=== PATIENT | female | born 1995 | race Caucasian/White ===

== ENCOUNTER → 2019-02-20 15:33 | Outpatient (CLI) | payer SELFPAY | PROVIDERS: Visit Provider Obstetrics & Gynecology | DX: N92.6 Irregular menstruation, unspecified (principal) ==

== ENCOUNTER → 2019-12-20 09:53 | Outpatient (CLI) | payer OTHER, SELFPAY ==
[2019-12-20 12:25] LABS: Progesterone Level 1.87 ng/mL (See Comment)
== END ==
PROVIDERS: Visit Provider Obstetrics & Gynecology
DX: N92.6 Irregular menstruation, unspecified (principal)
CPT/HCPCS: 84144

== ENCOUNTER → 2020-01-27 09:16 | Outpatient (CLI) | payer OTHER, SELFPAY ==
[2020-01-27 11:09] LABS: Progesterone Level 1.62 ng/mL (See Comment)
== END ==
PROVIDERS: Visit Provider Obstetrics & Gynecology
DX: N92.5 Other specified irregular menstruation (principal)
CPT/HCPCS: 36415; 84144

== ENCOUNTER → 2020-02-28 09:27 | Outpatient (CLI) | payer OTHER, SELFPAY ==
[2020-02-28 11:15] LABS: Progesterone Level 2.14 ng/mL (See Comment)
== END ==
PROVIDERS: Visit Provider Obstetrics & Gynecology
DX: N97.0 Female infertility associated with anovulation (principal); N92.6 Irregular menstruation, unspecified
CPT/HCPCS: 36415; 84144

== ENCOUNTER → 2020-03-31 09:42 | Outpatient (CLI) | payer OTHER, SELFPAY ==
[2020-03-31 10:51] LABS: Progesterone Level 29.27 ng/mL (See Comment)
== END ==
PROVIDERS: Visit Provider Obstetrics & Gynecology
DX: N97.0 Female infertility associated with anovulation (principal); N92.6 Irregular menstruation, unspecified
CPT/HCPCS: 36415; 84144

== ENCOUNTER → 2020-04-27 09:33 | Outpatient (CLI) | payer OTHER, SELFPAY ==
[2020-04-27 11:13] LABS: Progesterone Level 23.92 ng/mL (See Comment)
== END ==
PROVIDERS: Visit Provider Obstetrics & Gynecology
DX: N97.0 Female infertility associated with anovulation (principal); N92.6 Irregular menstruation, unspecified
CPT/HCPCS: 36415; 84144

== ENCOUNTER → 2020-05-26 13:04 | Outpatient (CLI) | payer OTHER, SELFPAY ==
[2020-05-26 16:09] LABS: Progesterone Level 28.56 ng/mL (See Comment)
== END ==
PROVIDERS: Visit Provider Obstetrics & Gynecology
DX: N97.0 Female infertility associated with anovulation (principal); N92.6 Irregular menstruation, unspecified
CPT/HCPCS: 36415; 84144

== ENCOUNTER → 2020-06-23 09:26 | Outpatient (CLI) | payer OTHER, SELFPAY ==
[2020-06-23 11:02] LABS: Progesterone Level 19.01 ng/mL (See Comment)
== END ==
PROVIDERS: Visit Provider Obstetrics & Gynecology
DX: N97.0 Female infertility associated with anovulation (principal); N92.6 Irregular menstruation, unspecified
CPT/HCPCS: 36415; 84144

== ENCOUNTER → 2020-07-06 09:50 | Outpatient (CLI) | payer OTHER, SELFPAY ==
[2020-07-06 12:43] LABS: hCG Titer Quant., Serum 748 mIU/mL (1-3)
== END ==
PROVIDERS: Visit Provider Obstetrics & Gynecology
DX: N91.2 Amenorrhea, unspecified (principal)
CPT/HCPCS: 36415; 84702; 86850; 86900; 86901

== ENCOUNTER → 2020-07-08 09:23 | Outpatient (CLI) | payer OTHER, SELFPAY ==
[2020-07-08 11:02] LABS: hCG Titer Quant., Serum 1685 mIU/mL (1-3)
== END ==
PROVIDERS: Visit Provider Obstetrics & Gynecology
DX: N91.2 Amenorrhea, unspecified (principal)
CPT/HCPCS: 36415; 84702

== ENCOUNTER → 2020-07-10 09:41 | Outpatient (CLI) | payer OTHER, SELFPAY ==
[2020-07-10 11:37] LABS: hCG Titer Quant., Serum 3598 mIU/mL (1-3)
== END ==
PROVIDERS: Visit Provider Obstetrics & Gynecology
DX: N91.2 Amenorrhea, unspecified (principal)
CPT/HCPCS: 36415; 84702

== ENCOUNTER → 2020-07-22 12:14 | Outpatient (CLI) | payer OTHER, SELFPAY ==
[2020-07-22 13:17] LABS: Absolute Lymphocyte Count 1.91 X10^3/uL (0.83-4.51); Absolute Neutrophil Count 10.3 X10^3/uL (2.0-7.7); Basophil# 0.03 X10^3/uL; Basophil% 0.2 % (0-1); Eosinophil# 0.01 X10^3/uL; Eosinophils% 0.1 % (0-5); Hematocrit 42.4 % (37-47); Hemoglobin 14.3 g/dL (12.0-15.0); Lymphocyte # 1.91 X10^3/ul (0.83-4.51); Lymphocyte % 14.6 % (19-41); Mean Corp Hgb Conc 33.7 g/dL (32-36); Mean Corpuscular Hgb 29.3 pg (27.0-32.0); Mean Corpuscular Volume 86.9 fL (81-99); Mean Platelet Vol. 10.3 fl (6.2-12.0); Monocyte# 0.72 X10^3/uL; Monocyte% 5.5 % (0-10); NRBC Flagged by Analyzer 0 % (0-5); Neutrophil # 10.34 X10^3/uL (2.7-7.7); Neutrophil % 79.1 % (47-70); Platelet Count 263 K/mm3 (150-450); RBC Distribution Width CV 12.2 % (11.6-14.6); Red Blood Count 4.88 M/mm3 (4.2-5.4); White Blood Count 13.1 K/mm3 (4.4-11.0)
[2020-07-22 13:18] LABS: Color, Urine Yellow (Yellow); Glucose, Dipstick Normal (Normal); Ketone-Dipstick Negative (Negative); Leukocyte Esterase-Dipstick Negative /ul (Negative); Nitrite-Dipstick Negative (Negative); Occult Blood-Urine 50 /ul (Negative); Protein-Dipstick Negative (Negative); Specific Gravity, Urine 1.015 (1.002-1.030); Urine Bilirubin Dipstick Negative (Negative); Urine Clarity Sl. Cloudy (Clear); Urine Urobilinogen Normal (Normal)
[2020-07-22 13:36] LABS: Thyroid Stim Hormone (TSH) 0.76 uIU/mL (0.358-3.74)
[2020-07-22 14:12] LABS: HIV - WCH Non-Reactive (Nonreactive); Hepatitis B Surface Antigen Non-Reactive (Nonreactive); Hepatitis C Antibody Non-Reactive (Nonreactive); Rubella IgG Reactive (Nonreactive); Syphilis Antibodies Non-reactive
[2020-07-24 04:10] LABS: Chlamydia By Nucleic Acid AMP Negative (Negative)
[2020-07-24 12:26] LABS: Gonococcus By Nucleic Acid AMP Negative (Negative)
== END ==
PROVIDERS: Visit Provider Obstetrics & Gynecology
DX: Z32.01 Encounter for pregnancy test, result positive (principal)
CPT/HCPCS: 36415; 81002; 84443; 85025; 86703; 86762; 86780; 86803; 87340; 87491; 87591

== ENCOUNTER → 2020-12-03 13:11 | Outpatient (CLI) | payer OTHER, SELFPAY ==
[2020-12-03 13:58] LABS: Hemoglobin 13.4 g/dL (12.0-15.0); Mean Corp Hgb Conc 34.4 g/dL (32-36); Mean Corpuscular Hgb 30.5 pg (27.0-32.0); Mean Corpuscular Volume 88.6 fL (81-99); Mean Platelet Vol. 10.3 fl (6.2-12.0); Platelet Count 228 K/mm3 (150-450); RBC Distribution Width CV 12.7 % (11.6-14.6); RBC Distribution Width SD 41.7 fl (35.1-43.9); White Blood Count 10.4 K/mm3 (4.4-11.0)
[2020-12-03 14:06] LABS: Glucose Challenge Gest 1H 50g 79 mg/dL (70-140)
== END ==
PROVIDERS: Visit Provider Obstetrics & Gynecology
DX: Z34.83 Encounter for supervision of other normal pregnancy, third trimester (principal)
CPT/HCPCS: 82950; 85027

== ENCOUNTER → 2021-02-10 10:50 | Outpatient (CLI) | payer OTHER, SELFPAY | PROVIDERS: Visit Provider Obstetrics & Gynecology | DX: Z36.85 Encounter for antenatal screening for Streptococcus B (principal) | CPT/HCPCS: 87081 ==

== ENCOUNTER 2021-03-11 14:03 | Inpatient (IN) | payer OTHER, SELFPAY ==
[2021-03-11] VITALS (32 sets, daily range): BP systolic 97–133; BP diastolic 56–78; PULSE 66–120; TEMP 36.4–36.8; O2SAT 82–100; BMI 29.1
[2021-03-11 13:50] LABS: ROM Internal Control Test YES-OK TO RESULT pt. (Internal QC)
[2021-03-11 13:58] LABS: ROM Patient Test POSITIVE (Negative)
[2021-03-11] MEDS: Lactated Ringers 1,000 ML 50 ML IV (14:30)
[2021-03-11 14:48] LABS: Absolute Lymphocyte Count 1.73 X10^3/uL (0.83-4.51); Absolute Neutrophil Count 10.6 X10^3/uL (2.0-7.7); Basophil# 0.03 X10^3/uL; Basophil% 0.2 % (0-1); Eosinophil# 0.01 X10^3/uL; Eosinophils% 0.1 % (0-5); Hematocrit 39.9 % (37-47); Hemoglobin 14.2 g/dL (12.0-15.0); Lymphocyte # 1.73 X10^3/ul (0.83-4.51); Lymphocyte % 13.1 % (19-41); Mean Corp Hgb Conc 35.6 g/dL (32-36); Mean Corpuscular Hgb 30.1 pg (27.0-32.0); Mean Corpuscular Volume 84.7 fL (81-99); Mean Platelet Vol. 9.8 fl (6.2-12.0); Monocyte# 0.77 X10^3/uL; Monocyte% 5.8 % (0-10); NRBC Flagged by Analyzer 0 % (0-5); Neutrophil # 10.58 X10^3/uL (2.7-7.7); Neutrophil % 80.4 % (47-70); Platelet Count 226 K/mm3 (150-450); RBC Distribution Width CV 12.6 % (11.6-14.6); RBC Distribution Width SD 38.9 fl (35.1-43.9); Red Blood Count 4.71 M/mm3 (4.2-5.4); White Blood Count 13.2 K/mm3 (4.4-11.0)
[2021-03-11] MEDS: Oxytocin 30 units/NS 500 ml 30 UNITS/500 ML IV.SOLN IV (15:51)
--- NOTE | 2021-03-11 16:33 | PCM.HP.BLA ---
History and Physical Date of Admission: 03/11/21 Chief complaint: Leakage of fluid History of present illness: 25-year-old G1, P0 at 40 weeks and 2 days with LONI: 03/09/2021 by LMP arrives with leakage of clear fluid. Denies headache, visual changes, chest pain, shortness breath, nausea vomiting, right upper quadrant pain. Patient states good movement. is complicated by two-vessel cord Static history: G1: Current Past medical history: None Medications: vitamin Past surgical history: None Allergies: No known drug allergies Social history: Denies smoking, alcohol use, drug use Family history: Denies history DVT or PE Review of systems: Besides above pertinent positives a full review of systems was performed and found to be negative Physical exam: Vital signs: Blood pressure 109/67 pulse 87 temp 97.5 Fahrenheit SPO2 90% on room air General: Normal-appearing no acute distress HEENT: Normocephalic atraumatic no cervical of adenopathy Cardiac/respiratory: No use of accessory muscles, nonlabored breathing Abdomen: Soft, nontender, gravid Extremities: No peripheral edema normal peripheral pulses Psych: Normal affect normal demeanor nonpressured speech Labs: White blood cell count 13.2 hemoglobin 14.2 hematocrit 39.9% platelets 226. Blood type pending. ROM positive Assessment plan: 25-year-old G1, P0 at 40 weeks and 2 days with spontaneous rupture membranes Admit labor and delivery CEFM GBS negative Routine orders Anesthesia to see
[2021-03-11] MEDS: Lactated Ringers 500 ML 999 ML IV ×2 (18:47→20:55)
[2021-03-11] MEDS: Ondansetron 4 MG/2 ML Vial IV (21:28)
[2021-03-11] MEDS: fentaNYL-bupivacaine (epidural) 100 ML BAG EPIDURAL (21:51)
[2021-03-11] MEDS: Lactated Ringers 1,000 ML 250 ML IV (23:02)
[2021-03-12] VITALS (21 sets, daily range): BP systolic 102–115; BP diastolic 47–88; PULSE 70–103; RESP 12–18; TEMP 36.2–37.1; O2SAT 95–99
[2021-03-12] MEDS: Lactated Ringers 1,000 ML 200 ML IV (02:35)
--- NOTE | 2021-03-12 02:36 | PN.OBGYN_ITS ---
Subjective Subjective Comfortable in bed with epidural Objective Data Objective Data Vital Signs: Vital Signs Temp Pulse Resp BP Pulse Ox 97.7 F L 76 16 112/57 L 99 03/12/21 02:02 03/12/21 02:02 03/12/21 02:02 03/12/21 02:02 03/12/21 01:38 Oxygen Delivery Method Room Air Weight: 208 lb 15.971 oz Body Mass Index (BMI) 29.1 Intake & Output: Intake and Output for Last 24 Hours 03/10/21 03/11/21 03/12/21 23:59 23:59 23:59 Intake Total 1892.20 / 1892.20 779.17 / 779.17 Output Total 2100 / 2099 Balance -207.80 / -207.80 779.17 / 779.17 Lab / Micro Data Result Diagrams: 03/11/21 14:30 Labs: Laboratory Results - last 24 hr 03/11/21 13:40: Vag Amniotic Fld Detect POSITIVE H 03/11/21 14:30: WBC 13.2 H, RBC 4.71, Hgb 14.2, Hct 39.9, MCV 84.7, MCH 30.1, MCHC 35.6, RDW Std Deviation 38.9, RDW Coeff of Samson 12.6, Plt Count 226, MPV 9.8, Immature Gran % (Auto) 0.400, Neut % (Auto) 80.4 H, Lymph % (Auto) 13.1 L, [place] % (Auto) 5.8, Eos % (Auto) 0.1, Baso % (Auto) 0.2, Absolute Neuts (auto) 10.6 H, Absolute Lymphs (auto) 1.73, Nucleated RBC % 0 03/11/21 14:30: Blood Type A POSITIVE, Antibody Screen NEGATIVE Micro: Microbiology 03/11/21 15:20 Nasal Secretion SARS-CoV-2 Antigen (Rapid) - Final Physical Exam Const alert, oriented x3, no apparent distress, average body habitus and healthy appearing HEENT normocephalic and moist oral mucous membranes Head and Scalp: atraumatic Face and Sinus: normal facial exam Eyes PERRL Neck full ROM Resp normal respiratory effort, no retractions and no use of accessory muscles GI GI Narrative: Bedside ultrasound: Transverse head maternal right. Spine facing up towards fundus Extremity normal to inspection and full ROM Psych mental status grossly normal, affect normal and speech normal NST FHR Rate Baby A Baseline: 130 Variability:: Moderate Accelerations:: 15 x 15 Decelerations:: None FHR Category:: Category I Uterine Activity:: Every 2 to 5 minutes Assessment & Plan (1) : PLAN: Called by nursing with possible nonvertex position based on cervical exam. Patient seen and examined, bedside ultrasound reveals transverse lie, head maternal right, spine up toward fundus. Educated patient on findings and need for primary section for transverse lie. Patient understands t he risk of the procedure include but are not limited to visceral or vascular injury, prolonged hospitalization, blood loss and need for transfusion, reoperation. Patient states understanding and wished to proceed. All questions were answered and consent was signed. For now, 2 g Ancef 500 mg of azithromycin
[2021-03-12] MEDS: Sodium Citrate/Citric Acid 30 ML UDC PO (02:46)
[2021-03-12] MEDS: Acetaminophen 500 MG Tablet PO (02:46)
[2021-03-12] MEDS: Cefazolin 2 GM in 0.9% Normal Saline 100 ML IV (03:00)
--- NOTE | 2021-03-12 04:13 | EX.PCM.OBRPT ---
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 Normal uterus, tubes, and ovaries Consent: Patient arrived with spontaneous rupture of membranes and found on exam and the bedside ultrasound to have transverse lie. Patient need of primary section for transverse lie. Patient understands risk of the procedure include but are not limited to visceral or vascular injury, prolonged hospitalization, blood loss and need for transfusion, reoperation. Patient state understanding and wished to proceed. All questions were answered and consent was signed. Procedure: Patient was brought back to the OR where epidural anesthesia was attempted multiple times with no success, general anesthesia was required. 2 g of Ancef and 500 mg of azithromycin were given for infection prophylaxis. Patient was prepared and draped in a supine position with leftward tilt. A Pfannenstiel incision was made the skin with a scalpel. The incision was carried down to the fascia with a scalpel. The fascia was excised and extended laterally. Inferior and superior portions of the fascia were dissected from the rectus muscle via blunt dissection. Rectus muscle was dissected at the midline down to the level of the pubic symphysis. Preperitoneal fatty tissue was noted and peritoneum was entered bluntly. Peritoneum was extended superiorly and inferiorly with good visualization of the bladder. Bladder blade was inserted and vesicouterine peritoneum was identified. Low transverse hysterotomy was made. lie was noted to be breech, baby was delivered in standard breech fashion. Cord was cut and clamped. Baby was handed off to nursing. Placenta was delivered via cord traction and fundal massage. IV oxytocin was initiated in order to facilitate uterine contractions. Uterus was exteriorized and wiped out with dry laparotomy sponge in order to remove remaining placental membranes. Uterus was closed in a continuous running fashion. Second layer was performed. Good hemostasis was noted. Uterus was placed back in the abdominal cavity and the incision was reinspected, good hemostasis was noted. Rectus muscle was reapproximated with horizontal mattress sutures. Fascia was closed in a continuous running fashion with single strand PDS. Skin was closed in a subcuticular fashion. All counts were correct x2. Patient tolerated procedure well and was brought to recovery in stable condition.
[2021-03-12] MEDS: Oxytocin 30 units/NS 500 ml 30 UNITS/500 ML IV.SOLN 167 UNITS IV (04:40)
[2021-03-12] MEDS: Ketorolac 30 MG/ML Syringe IV ×3 (06:00→18:35)
[2021-03-12] MEDS: Acetaminophen 500 MG Tablet 1000 MG PO ×3 (08:59→21:26)
[2021-03-12] MEDS: Senna/Docusate Sodium 1 Tablet PO (10:44)
[2021-03-12] MEDS: 0.9% Saline Lock 10 ML Syringe IV ×2 (12:49→18:43)
[2021-03-12] MEDS: Enoxaparin 40 MG/0.4 ML Syringe SC (18:41)
[2021-03-13] MEDS: Ketorolac 30 MG/ML Syringe IV
[2021-03-13] MEDS: 0.9% Saline Lock 10 ML Syringe IV (00:01)
[2021-03-13 00:11] VITALS: BP 110/59; PULSE 79; RESP 18; TEMP 36.4
[2021-03-13 03:40] VITALS: BP 109/52; PULSE 75; RESP 18; TEMP 36.3; O2SAT 97
[2021-03-13] MEDS: Acetaminophen 500 MG Tablet 1000 MG PO ×2 (03:46→10:04)
[2021-03-13] MEDS: Ibuprofen 600 MG Tablet PO ×2 (05:35→13:24)
[2021-03-13 05:37] LABS: Hematocrit 27.4 % (37-47); Hemoglobin 9.1 g/dL (12.0-15.0); Mean Corp Hgb Conc 33.2 g/dL (32-36); Mean Corpuscular Hgb 29.6 pg (27.0-32.0); Mean Corpuscular Volume 89.3 fL (81-99); Mean Platelet Vol. 9.3 fl (6.2-12.0); Platelet Count 159 K/mm3 (150-450); RBC Distribution Width CV 12.8 % (11.6-14.6); RBC Distribution Width SD 41.3 fl (35.1-43.9); Red Blood Count 3.07 M/mm3 (4.2-5.4); White Blood Count 13.6 K/mm3 (4.4-11.0)
--- NOTE | 2021-03-13 07:42 | PN.OBGYN_ITS ---
Subjective Subjective Postop day 1 status post primary section. Feeling well. Pain minimal. Has gotten up and ambulated without issue. Lochia minimal. Breast-feeding is going well. Objective Data Objective Data Vital Signs: Vital Signs Temp Pulse Resp BP Pulse Ox 97.4 F L 75 18 109/52 L 97 03/13/21 03:40 03/13/21 03:40 03/13/21 03:40 03/13/21 03:40 03/13/21 03:40 Oxygen Delivery Method Room Air Weight: 94.8 kg Body Mass Index (BMI) 29.1 Intake & Output: Intake and Output for Last 24 Hours 03/11/21 03/12/21 03/13/21 23:59 23:59 23:59 Intake Total 1892.20 / 1892.20 1844.10 / 1844.10 Output Total 2100 / 2100 5300 / 5300 750 / 750 Balance -207.80 / -207.80 -3455.90 / -3455.90 -750 / -750 Lab / Micro Data Result Diagrams: 03/13/21 05:25 Labs: Laboratory Results - last 24 hr 03/13/21 05:25: WBC 13.6 H, RBC 3.07 L, Hgb 9.1 L, Hct 27.4 L, MCV 89.3 D, MCH 29.6, MCHC 33.2 D, RDW Std Deviation 41.3, RDW Coeff of Samson 12.8, Plt Count 159, MPV 9.3 Micro: Microbiology 03/11/21 15:20 Nasal Secretion SARS-CoV-2 Antigen (Rapid) - Final Physical Exam Const alert, oriented x3 and no apparent distress HEENT normocephalic Head and Scalp: atraumatic Neck full ROM Resp normal respiratory effort Cardio regular rate GI normal to inspection, nondistended, normoactive bowel sounds GI Narrative: Uterus 2 cm below umbilicus. Small central dried area of blood on bandage, within encircled area by RN. Otherwise bandages clean and dry. Back/Spine normal ROM Extremity normal to inspection Extremity Narrative: Minimal pedal edema Neuro no focal motor deficits and no sensory deficits noted Psych mental status grossly normal and affect normal Assessment & Plan (1) Delivery by section: PLAN: Postoperative day 1 status post primary section for breech presentation. Pain controlled. Breast-feeding. Acute blood loss anemia secondary to surgery: Supplement with iron 3 times weekly on discharge. Follow- up 2-week postop visit in 6-week . Discharge home today. (2) Other acute postprocedural pain: (3) Acute postoperative anemia due to expected blood loss:
--- NOTE | 2021-03-13 07:44 | PCM.DC ---
Discharge Instructions Diet Discharge Diet: No restrictions Activity Discharge Activity: Return to Normal Activity and May Shower May resume sexual activity in: 4-6 weeks Weight Bearing Status: Weight bearing as tolerated Lifting Restrictions: No greater than 25 pounds Dressing / Incision Call your doctor if your incision/area has: Continuous Slow Oozing, Increased Redness and Foul Smelling Discharge Call your doctor if you observe: Fever of 101 or Higher, Change in Color, Inability to urinate, Using more than 1 pad per hour, Shortness of breath, Dizziness, Swelling in the ankles, Chest pain and Calf discomfort Cleanse incision/area with: Soap & Water Follow Up Care Please Follow Up With: Amanuel Parsons MD When: 2-week post operative and 6-week visit Test Results: Test results from this visit will be discussed in further detail at your follow-up appointment, if applicable. Discharge Plan Admission Admit Date/Time: 03/11/21 14:03 Primary Reason for Your Visit: section Attending Provider: Amanuel Parsons Discharge Orders/Prescriptions Prescriptions: No Action 1 mg Tablet 1 tab PO DAILY RF: 0 Disposition Disposition (needs filled in before D/C Order can be placed): Home, Self Care
[2021-03-13 08:00] VITALS: BP 110/61; PULSE 87; RESP 16; TEMP 36.3; O2SAT 98
[2021-03-13] MEDS: Enoxaparin 40 MG/0.4 ML Syringe SC (10:03)
[2021-03-13 12:00] VITALS: BP 108/67; PULSE 88; RESP 16; TEMP 36.3; O2SAT 98
== END 2021-03-13 14:00 | disposition home or self-care (01) | DRG 787 ==
LOC: WPOUT 14:03 → WP 14:06
PROVIDERS: Admitting Provider Obstetrics & Gynecology; Visit Provider Obstetrics & Gynecology
DX: O32.2XX0 Maternal care for transverse and oblique lie, not applicable or unspecified (principal); D62 Acute posthemorrhagic anemia; Z3A.40 40 weeks gestation of pregnancy; Z37.0 Single live birth
CPT/HCPCS: 59025; 59050; 84112; 85025; 85027; 86850; 86900; 86901; 87426; 99218; 99251; J7120; A4216; G0378; G0463; J2405

== ENCOUNTER 2021-04-22 15:14 | Outpatient (CLI) | payer OTHER, SELFPAY ==
[2021-04-27 16:27] LABS: HPV Reflexed? NOT INDICATED
== END 2021-04-22 23:59 | disposition short-term general hospital (02) ==
LOC: LABSPEC 15:18
PROVIDERS: Visit Provider Obstetrics & Gynecology
DX: Z12.4 Encounter for screening for malignant neoplasm of cervix (principal)
CPT/HCPCS: 88175; G0145

== ENCOUNTER → 2021-09-28 | Outpatient (CLI) | payer OTHER, SELFPAY | END | disposition home or self-care (01) | LOC: LABSPEC 10:19 | PROVIDERS: Visit Provider Obstetrics & Gynecology | DX: Z12.4 Encounter for screening for malignant neoplasm of cervix (principal) | CPT/HCPCS: 88175; G0145 ==

== ENCOUNTER 2023-04-19 17:52 | Emergency (ER) | payer OTHER, SELFPAY ==
[2023-04-19 17:54] VITALS: BP 98/71; PULSE 114; RESP 22; TEMP 37.2; O2SAT 96; BMI 26.7
--- NOTE | 2023-04-19 19:28 | ED.VIS.GI ---
HPI HPI - GI History of Present Illness Chief Complaint: Nausea/Vomiting/Diarrhea Informant: patient Abdominal Pain/Flank Pain Onset: Today Context: Sudden Onset Timing: Intermittent Quality: - (Tightness) Location: Diffuse Worsened by: Food Relieved by: Nothing Nausea/Vomiting/Emesis GI Symptom: Positive for Nausea and Vomiting Onset: Today Quality: Positive for Nonbilious; Negative for Blood streaks, Coffee ground or Hematemesis Diarrhea/Melena/Hematochezia GI Symptom: Positive for Diarrhea; Negative for Melena or Hematochezia Onset: Today Stool Quality: Positive for Loose and Watery; Negative for Black, Maroon or BRB per rectum Associated Symptoms Associated Symptoms: Negative for Dysuria, Frequency or Hematuria Narrative Narrative: Patient presents with nausea, vomiting, and diarrhea that began today. Patient also admits to some abdominal pain. Patient states it feels like a tightness. Patient states that worse over the periumbilical area but states it is diffuse across her entire abdomen. Patient states it is intermittent. Patient states it became worse after eating. Patient denies any hematemesis or coffee-ground emesis. Patient states she is having difficulty keeping things down today. Patient denies any melena or hematochezia. Patient denies any urinary complaints. Patient is approximately 18 weeks . Patient is 2 para 1. [facility] Medical History (Updated 04/19/23 @ 22:[address] Willy Bragg, DO) Infertility Home Medications [id number] 1 mg tablet 1 tab PO DAILY 03/11/21 [History Last Taken 03/11/21 09:00] oxycodone 5 mg tablet 5 mg PO Q6H PRN pain 4 days #16 tabs 03/13/21 [Rx Last Taken Unknown] ondansetron 4 mg disintegrating tablet 4 mg PO Q8H PRN PRN Nausea #10 tabs 04/19/23 [Rx Last Taken Unknown] sertraline 50 mg tablet 50 mg PO DAILY 04/19/23 [History Last Taken Unknown] Allergy/AdvReac Type Severity Reaction Status Date / Time No Known Allergies Allergy Verified 04/19/23 17:52 Surgical History (Updated 04/19/23 @ 22:[address] Willy Bragg, DO) H/O section Social History Smoking Status: Never smoker ROS ROS ED Constitutional Constitutional ED: Reports chills and subjective; Denies fever(s) Eyes Eyes: Denies blurry vision or change in vision ENT ENT ED: Denies rhinorrhea or sore throat Cardiovascular Cardiovascular: Denies chest pain or palpitations Respiratory/Chest Respiratory/Chest: Denies cough or dyspnea Gastrointestinal Gastrointestinal: Reports abdominal pain, diarrhea, nausea and vomiting; Denies melena Genitourinary Genitourinary ED: Denies dysuria or hematuria Musculoskeletal Musculoskeletal: Denies back pain or neck pain Integumentary Denies abscess or rash Neurologic Neurologic: Denies headache(s) or weakness Allergic/Immunologic Allergic/Immunologic ED: Denies mouth swelling or urticaria EXAM Physical Exam Const Vital Signs: 04/19/23 17:54 04/19/23 21:09 Temperature 98.9 F Temperature Source Temporal Pulse Rate 114 H Respiratory Rate 22 H 18 Blood Pressure 98/71 Blood Pressure Mean 80 Pulse Ox 96 Oxygen Delivery Method Room Air Positive well nourished and well developed General Appearance ED: well developed and NAD HEENT Reports moist mucous membranes Neck supple and no JVD Resp normal respiratory effort and clear to auscultation bilaterally Cardio regular rhythm Rate: tachycardic GI non-distended Palpation: soft and tender epigastric, LLQ, RLQ, LUQ, RUQ, periumbilical and suprapubic; Negative for guarding or rebound tenderness present Neuro CN's II-XII intact bilaterally, moves all extremities and no sensory deficits noted Sensorium / Orientation: alert Motor Exam: strength 5/5 throughout Psych mental status grossly normal MDM MDM MDM Narrative Medical decision making narrative: Differential diagnosis includes gastroenteritis, dehydration, electrolyte abnormality, urinary tract infection, and hyperemesis gravidarum. CBC will be obtained to assess for leukocytosis and anemia. Prehensile metabolic profile will be obtained to assess for hepatic function, renal function, and electrolyte abnormality. Urinalysis will be obtained to assess for urinary tract infection. Lab Data Attestation: I reviewed the patient's lab results. Lab results narrative: CBC was reviewed. There is a slight leukocytosis of 11.8. This is likely from the . Comprehensive metabolic profile was reviewed. Potassium was low at 6.7. This is most likely from the nausea and vomiting. Urinalysis was reviewed. There is no evidence of urinary tract infection or hematuria. Labs: Laboratory Results - last 24 hr 04/19/23 04/19/23 19:18 21:00 WBC 11.8 H RBC 5.07 Hgb 14.8 Hct 43.6 MCV 86.0 MCH 29.2 MCHC 33.9 RDW Std Deviation 41.1 RDW Coeff of Samson 13.2 Plt Count 219 MPV 10.2 Immature Gran % (Auto) 0.400 Neut % (Auto) 89.2 H Lymph % (Auto) 3.7 L [place] % (Auto) 6.5 Eos % (Auto) 0.0 Baso % (Auto) 0.2 Absolute Neuts (auto) 10.5 H Absolute Lymphs (auto) 0.44 L Nucleated RBC % 0 Differential Comment SCANNED Sodium 140 Potassium 2.7 L* Chloride 110 H Carbon Dioxide 23.0 Anion Gap 7 BUN 10 Creatinine 0.52 L Estim Creat Clear Calc 201.77 Est GFR (MDRD) Af Amer 182 Est GFR (MDRD) Non-Af 150 BUN/Creatinine Ratio 19.0 Glucose 108 H Calcium 8.3 L Total Bilirubin 0.50 AST 19 ALT 15 Alkaline Phosphatase 53 Total Protein 6.7 Albumin 3.4 Globulin 3.3 Albumin/Globulin Ratio 1.0 Urine Color Yellow Urine Clarity Sl. Cloudy Urine pH 5.0 Ur Specific [place] 1.025 Urine Protein 30 H Urine Glucose (UA) Normal Urine Ketones 50 H Urine Occult Blood 25 H Urine Nitrite Negative Urine Bilirubin 1 H Urine Urobilinogen Normal Ur Leukocyte Esterase 25 H Urine RBC 0 SEEN Urine WBC 0-5 SEEN Ur Squamous Epith Cells 10-25 SEEN Urine Bacteria 0 SEEN Urine Mucus 1+ Treatment and Re-Evaluation :: Patient was given IV fluids and Zofran. Patient was given a dose of potassium here. Patient was advised of her findings. Patient was instructed to start with sips of fluids and advance her diet as tolerated. Patient was given a prescription for Zofran. Patient was instructed to follow-up with her primary care physician and BRAILLE TRANSLATOR in 5 to 7 days. Patient was instructed to return if worse in any way. Patient understood and was agreeable with the plan. All questions were answered. Discharge Plan Triage Chief Complaint: Nausea/Vomiting/Diarrhea ED Provider: Willy Bragg Dx/Rx/DC Orders Clinical Impression: Nausea, vomiting, and diarrhea, Second trimester , Hypokalemia Instructions: ED Vomiting (Adult) Prescriptions: New ondansetron [ondansetron] 4 mg tablet,disintegrating 4 mg PO Q8H PRN PRN (Reason: Nausea) Qty: 10 0RF No Action [id number] 1 mg Tablet 1 tab PO DAILY oxycodone 5 mg Tablet 5 mg PO Q6H PRN (Reason: pain) 4 Days Qty: 16 0RF sertraline 50 mg tablet 50 mg PO DAILY Patient Comments: take 1 tablet by mouth once daily Primary Care Provider: Care Physician,No Primary Referrals: Gilberto Barber MD [Med Staff - Active Staff] - 5-7 Days Care Physician,No Primary [Primary Care Provider] - Disposition Disposition: Home, Self Care
--- OUTSIDE RECORDS SUMMARY | 2023-04-19 20:09 | XMS RPT_ITS | CCD ---
Author Name Unknown Address [address] [place] [address] Organization [facility] Care Team Providers Care Ticket Sales Supervisor Name Role Phone PHYSICIAN, PATIENT UNSURE Primary Care Physician Unavailable PHYSICIAN, PATIENT UNSURE Primary Care Unavai labCARMEL Mayer Attending Unavailable PHYSICIAN, PATIENT UNSURE Primary Care Unavai lable BEITLER, CARMEL Attending Unavailable PHYSICIAN, PATIENT UNSURE Primary Care Unavai lable BEITLER, CARMEL Attending Unavailable PHYSICIAN, PATIENT UNSURE Primary Care Unavai lable BEITLERCARMEL Attending Unavailable PHYSICIAN, PATIENT UNSURE Primary Care Unavai lable BEITLER, CARMEL Attending Unavailable PHYSICIAN, PATIENT UNSURE Primary Care Unavai lable BEITLER, CARMEL Attending Unavailable JOJO, CARMEL Attending Unavailable PHYSICIAN, PATIENT UNSURE Primary Care Unavai lable Medications Current Medications Medication Drug Class(es) Dates Sig (Normalized) Sig (Original) Cranberry preparation (2 sources) Non-Standardized Food Allergenic Extract, Non-Standardized Plant Allergenic Extract Start: 01-10-2023 take 1 capsule by mouth once daily cranberry oral capsule Dose = 1 cap(s), Oral, Daily, 0 Refill(s) Start Date: 01/10/23 Status: Ordered PrenaPlus oral tablet (2 sources) Start: 01-10-2023 take 1 tablet by mouth once daily PrenaPlus oral tablet Dose = 1 tab(s), Oral, Daily, # 30 tab(s), 0 Refill(s) Start Date: 01/10/23 Status: Ordered sertraline 50 mg oral tablet (2 sources) Serotonin Reuptake Inhibitor Start: 01-10-2023 Zoloft 50 mg oral tablet Dose : 50 mg = 1 tab(s), Oral, qDay, # 30 tab(s), 0 Refill(s) Start Date: 01/10/23 Status: Ordered Problems Problem Classification Problem Date Documented Da te Episodic/Chronic Menstrual disorders (2 sources) Secondary amenorrhea; Translations: [Secondary amenorrhea] Onset: 01-10-2023 Chronic Other and delivery including normal (2 sources) 01-10-2023 Episodic Results Test Name Value Interpretation Reference Range Facil ity Encounters Encounter Date Encounter Type Care Provider Facility Start: 04-17-2023 ambulatory PATIENT UNSURE PHYSICIAN Facility:B Start: 01-31-2023 End: 02-01-2023 ambulatory PATIENT UNSURE PHYSICIAN Facility:B Start: 01-31-2023 End: 01-31-2023 Patient encounter procedure CARMEL URIBE VISITOR SERVICES INFORMATION ASSISTANT-[facility] Start: 01-17-2023 End: 01-18-2023 ambulatory PATIENT UNSURE PHYSICIAN Facility:B Start: 01-12-2023 End: 01-13-2023 ambulatory PATIENT UNSURE PHYSICIAN Facility:B Start: 01-10-2023 End: 01-15-2023 ambulatory PATIENT UNSURE PHYSICIAN Facility:B Start: 01-10-2023 End: 01-11-2023 ambulatory CARMEL URIBE Facility:B Start: 01-10-2023 End: 01-10-2023 Patient encounter procedure CARMEL URIBE VISITOR SERVICES INFORMATION ASSISTANT-[facility] Payers Date Payer Category Payer Unknown [id number] 1997 Unknown [id number] 2.16.8 [id number] 1997 Unknown [id number] 2.16.8 [id number] 1997 Unknown [id number] 2.16.8 [id number] 1997 Unknown [id number] 2.16.8 [id number] 1997 Unknown [id number] 2.16.8 [id number] 1997 Unknown [id number] 2.16.8 [id number] 1997 Unknown [id number] 2.16.8 [id number] Social History Date Type Detail Facility Start: 01-10-2023 Tobacco smoking status Never s moked tobacco (finding) [facility] Sex Assigned At Female [facility] Clinical Note 01-12-2023 Note Date & Type Note Facility 01-12-2023 Note . MICRO - Microbiology PROCEDURE: Urine Culture [*1] SOURCE: Urine, Clean Catch BODY SITE: COLLECTED DATE/TIME: 01/10/2023 14:28 EDT RECEIVED DATE/TIME: 01/10/2023 19:35 EDT START DATE/TIME: 01/10/2023 19:35 EDT FREE TEXT SOURCE: FINAL REPORTS Final Report [] Verified Date/Time/Personnel: 01/12/2023 07:31 EDT 50,000 - 100,000 cfu/ml Mixed growth consistent with normal urogenital lexy. PRELIMINARY REPORTS Preliminary Report [] Verified Date/Time/Personnel: 01/11/2023 10:26 EDT No growth to date Performing Locations *1: This test was performed at: [facility], [address] [place] [address], [id number] , [facility] ([place]) Evaluation + Plan note LaboratoryRadiology Note Date & Type Note Facility Evaluation + Plan note Future Appointments Appointment Date:01/17/2023 07:30:00 AM Scheduled Provider: Location:[facility] Appointment Type:US OB < 14 weeks Diagnostic Tests PendingRapid Plasma Reagin Test 01/10/23Rubella Antibody 01/10/23Varicella Zoster Antibody 01/10/23 Future Scheduled TestshCG, quantitative(AO) 01/10/23US OB < 14 weeks 01/17/23 [facility] Hospital course Narrative Note Date & Type Note Facility Hospital course Narrative No data available for this section [facility] Hospital Discharge instructions Note Date & Type Note Facility Hospital Discharge instructions No data available for this section [facility] Progress note Note Date & Type Note Facility Progress note No data available for this section [facility] Summary Purpose Family History No Family History Records Found Advance Directives No Advanced Directives Records Found Additional Source Comments Patient Care team informatio n (unrecognized section and content) Care Team Personnel Name: PHYSICIAN, PATIENT UNSURE Member Role: Primary Care Physician Care Team Related Persons Name: DUNIA BHARDWAJ Care Team Personnel Name: PHYSICIAN, PATIENT UNSURE Member Role: Primary Care Physician Care Team Related Persons Name: DUNIA BHARDWAJ INFORMATION SOURCE (unrecogn ized section and content) FOR RECORDS PERTAINING TO PATIENTS WHO ARE OR HAVE BEEN ENROLLED IN A CHEMICAL DEPENDENCY/SUBSTANCEABUSE PROGRAM, SOME INFORMATION MAY BE OMITTED. This clinical summary was aggregated from multiple sources. Caution should be exercised in using it in the provision of clinical care. This summary normalizes information from multiple sources, and as a consequence, information in this document may materially change the coding, format and clinical context of patient data. In addition, data may be omitted in some cases. CLINICAL DECISIONS SHOULD BE BASED ON THE PRIMARY CLINICAL RECORDS. [email or web address] [facility]. provides no warranty or guarantee of the accuracy or completeness of information in this document.
[2023-04-19 21:01] LABS: Bacteria 0 SEEN /hpf (None Seen); Red Blood Cells-Urine 0 SEEN /hpf (0-5)
[2023-04-19 21:02] LABS: Color, Urine Yellow (Yellow); Glucose, Dipstick Normal (Normal); Ketone-Dipstick 50 mg/dl (Negative); Leukocyte Esterase-Dipstick 25 /ul (Negative); Nitrite-Dipstick Negative (Negative); Occult Blood-Urine 25 /ul (Negative); Protein-Dipstick 30 mg/dl (Negative); Specific Gravity, Urine 1.025 (1.002-1.030); Urine Clarity Sl. Cloudy (Clear); Urine Urobilinogen Normal (Normal)
[2023-04-19 21:04] LABS: Urine Bilirubin Dipstick 1 mg/dL (Negative)
[2023-04-19 21:06] LABS: Absolute Lymphocyte Count 0.44 X10^3/uL (0.83-4.51); Absolute Neutrophil Count 10.5 X10^3/uL (2.0-7.7); Basophil# 0.02 X10^3/uL; Basophil% 0.2 % (0-1); Hematocrit 43.6 % (37-47); Hemoglobin 14.8 g/dL (12.0-15.0); Lymphocyte # 0.44 X10^3/ul (0.83-4.51); Lymphocyte % 3.7 % (19-41); Mean Corp Hgb Conc 33.9 g/dL (32-36); Mean Corpuscular Hgb 29.2 pg (27.0-32.0); Mean Platelet Vol. 10.2 fl (6.2-12.0); Monocyte# 0.77 X10^3/uL; Monocyte% 6.5 % (0-10); NRBC Flagged by Analyzer 0 % (0-5); Neutrophil # 10.49 X10^3/uL (2.7-7.7); Neutrophil % 89.2 % (47-70); POSITIVE DIFFERENTIAL YES; Platelet Count 219 K/mm3 (150-450); RBC Distribution Width CV 13.2 % (11.6-14.6); RBC Distribution Width SD 41.1 fl (35.1-43.9); Red Blood Count 5.07 M/mm3 (4.2-5.4); White Blood Count 11.8 K/mm3 (4.4-11.0)
[2023-04-19] MEDS: 0.9% Normal Saline (1000mL) 1,000 ML 1000 ML IV (21:07)
[2023-04-19] MEDS: Ondansetron 4 MG/2 ML Vial IV (21:07)
[2023-04-19 21:09] VITALS: RESP 18
[2023-04-19 21:12] LABS: Mucous, Urine 1+ /hpf (<or=2+); Squamous Epithelial Cells - UA 10-25 SEEN /hpf (5-10); White Blood Cells 0-5 SEEN /hpf (0-5)
[2023-04-19 21:17] LABS: Differential Indicated SCAN CRITERIA MET
[2023-04-19 21:25] LABS: AST(SGOT) 19 U/L (15-37); Alanine Aminotransfer ALT/SGPT 15 U/L (13-56); Albumin, Serum 3.4 g/dL (3.2-5.0); Alkaline Phosphatase 53 U/L (45-117); Anion Gap 7 (5-15); BUN 10 mg/dL (7-18); Calcium,Total 8.3 mg/dL (8.5-10.1); Chloride 110 mmol/L (98-107); Creatinine, Serum 0.52 mg/dL (0.55-1.02); EST Glomerular Filtration Rate 150 mL/min (>60); Est Glom Filt Rate - Afr Amer 182 mL/min (>60); Estimated Creatinine Clearance 201.77 ml/min; Globulin 3.3 g/dL (2.2-4.2); Glucose 108 mg/dL (74-106); Potassium 2.7 mmol/L (3.5-5.1); Protein, Total 6.7 g/dL (6.4-8.2); Sodium Level 140 mmol/L (136-145)
[2023-04-19 21:42] LABS: Differential Comment SCANNED
[2023-04-19] MEDS: Potassium Chloride Oral Tablet 20 MEQ 40 MEQ PO (22:17)
== END 2023-04-19 22:21 | disposition home or self-care (01) ==
PROVIDERS: Emergency Provider Emergency Medicine; Visit Provider Emergency Medicine
DX: O21.9 Vomiting of pregnancy, unspecified (principal); O99.282 Endocrine, nutritional and metabolic diseases complicating pregnancy, second trimester; Z3A.18 18 weeks gestation of pregnancy; R19.7 Diarrhea, unspecified; O99.891 Other specified diseases and conditions complicating pregnancy; E87.6 Hypokalemia
CPT/HCPCS: 80053; 81001; 85025; 99282; J7030; A4216; J2405